=== PATIENT | female | born 1980 ===

== ENCOUNTER 2017-12-26 09:23 | Outpatient (CLI) | payer BC | END 2017-12-26 09:24 | disposition home or self-care (01) | LOC: BICMAMMO 09:23 | PROVIDERS: ATTEND Family Medicine | DX: N64.4 Mastodynia (principal); R92.2 Inconclusive mammogram | CPT/HCPCS: 77066; G0279 ==

== ENCOUNTER 2018-07-25 13:43 | Outpatient (CLI) | payer BC ==
--- NOTE | 2018-07-25 15:27 | ULT ---
SONOGRAM RIGHT BREAST LIMITED SONOGRAM LEFT BREAST LIMITED: HISTORY: Multiple bilateral breast nodules. COMPARISON: 12/26/2017. FINDINGS: The 0.3 cm hypoechoic nodule at the 9 o'clock position of the right breast appears stable and likely represents a small complex cyst. The small cyst at the 4 o'clock position right breast, 0.4 cm, is a lso stable. At the 3 o'clock position of the left breast, the small complex cyst measuring up to 0.4 cm is stable . At the 5 o'clock position left breast, the lobular hypoechoic mass measuring up to 1.1 cm greatest diameter is unchanged in appearance. No new abnormalities. IMPRESSION: BIRADS category 2. Benign findings. Suggest routine mammographic followup. POS: NASRA
== END 2018-07-25 13:44 | disposition home or self-care (01) ==
LOC: BICMAMMO 13:43
PROVIDERS: ATTEND Family Medicine
DX: R92.8 Other abnormal and inconclusive findings on diagnostic imaging of breast (principal); D24.2 Benign neoplasm of left breast
CPT/HCPCS: 77066; G0279